=== PATIENT | female | born 1960 | race Caucasian/White ===

== ENCOUNTER 2016-11-25 22:11 | Emergency (ER) | payer MEDICARE, OTHER ==
[2016-11-25 19:14] LABS: BASOPHILS 0.3 %; BASOPHILS ABSOLUTE 0.04 10/3/uL (0.0-0.16); EOSINOPHILS 0.9 %; EOSINOPHILS ABSOLUTE 0.12 10/3/uL (0.0-0.53); HEMATOCRIT 39.8 % (36.0-48.0); HEMOGLOBIN 12.9 g/dL (12.0-16.0); IMMATURE GRANULOCYTES 0.3 %; IMMATURE GRANULOCYTES ABSOLUTE 0.04 10/3/uL (0.0-0.11); LYMPHOCYTES 32.2 %; LYMPHOCYTES ABSOLUTE 4.11 10/3/uL (0.67-4.30); MEAN CORPUS HGB CONC 32.4 g/dL (32.0-36.0); MEAN CORPUSCULAR HEMOGLOB 31.2 pg (26.0-34.0); MEAN CORPUSCULAR VOLUME 96.4 fL (80-100); MEAN PLATELET VOLUME 9.6 fL (9.2-13.0); MONOCYTES 7.3 %; MONOCYTES ABSOLUTE 0.93 10/3/uL (0.21-1.20); NEUTROPHILS ABSOLUTE 7.52 10/3/uL (2.02-8.40); PLATELET COUNT 230 10/3/uL (150-400); RBC DISTRIBUTION WIDTH 16.1 % (12.0-16.0); RED CELL COUNT 4.13 10/6/uL (4.0-5.6); WHITE BLOOD CELLS 12.8 10/3/uL (4.5-10.5)
[2016-11-25 19:18] LABS: MANUAL DIFF NO %
[2016-11-25 19:26] LABS: PARTIAL THROMBO TIME 28.2 SEC (22.5-37.2); PROTIME (NOT ORD) 13.3 SEC (12.0-14.5)
[2016-11-25 19:32] LABS: BUN (BLOOD UREA NITROGEN) 20 MG/DL (6-23); CALCIUM, SERUM 10.4 MG/DL (8.5-10.4); CHEST PAIN PROFILE TAT 0 Hrs 22 Mins; CHLORIDE, SERUM 109 MMOL/L (96-112); CO2 (CARBON DIOXIDE) 25 MMOL/L (24-34); CREATININE 1.01 MG/DL (0.55-1.02); GFR AFRICAN AMERICAN 73 ML/MIN (>=60); GFR NON AFRICAN AMERICAN 63 ML/MIN (>=60); GLUCOSE, SERUM 119 MG/DL (60-99); POTASSIUM, SERUM 3.9 MMOL/L (3.5-5.3); SODIUM, SERUM 141 MMOL/L (135-148); TROPONIN I <0.02 NG/ML (<0.05)
[2016-11-25 20:02] LABS: D-DIMER QUANTITATIVE < 0.27 ug/mLFEU (< 0.50)
[~2016-11-25 22:11] MED LIST: ABILIFY10 PO; ALEVE220 MG PO; AMIT25 PO; ASAB PO; ASCRIPTIN PO; CARDCD240 PO; COREG12 PO; COREG6 PO; EFFEXOR XR150 MG PO; EXALGO16 MG PO; EXCEDRIN MIGRA1 EAC1 PO; FEMARA PO; FISH-EPA1000 MG PO; IMDUR30 PO; K-TABS10 MEQ PO; KEPPRA1000 MG PO; KEPPRA500 PO; KLOR-CON 1010 MEQ PO; KLOR-CON M1010 MEQ PO; L40 PO; LIPITOR20 PO; LOFIB160 PO; LOFIBRA160 MG PO; LOP50 PO; MIRAPEX250 PO; MOBIC7.5 PO; NEUR300 PO; OPANA ER7.5 MG PO; OXYCONTIN15 MG PO; PCET PO; PERCOCET1 TA4 PO; PLAVIX PO; PR25; PRAVACHOL40 MG PO; PROAIR HFA; REQUIP2 PO; REQUIP5 MG PO; RISP1 PO; SEROQUEL200 MG PO; SYN.05 PO; SYN075 PO; TRAZ100 PO; VENTOLIN HFA INH; VISKEN10 PO; XANAX1 MG PO
== END 2016-11-25 22:27 | disposition home or self-care (01) ==
LOC: ER 22:11
PROVIDERS: Emergency Medicine
DX: R07.9 Chest pain, unspecified (principal); R05 Cough; R20.0 Anesthesia of skin; J44.9 Chronic obstructive pulmonary disease, unspecified; I10 Essential (primary) hypertension; F17.200 Nicotine dependence, unspecified, uncomplicated; Z85.3 Personal history of malignant neoplasm of breast; Z88.1 Allergy status to other antibiotic agents; Z88.8 Allergy status to other drugs, medicaments and biological substances; Z79.891 Long term (current) use of opiate analgesic; Z79.899 Other long term (current) drug therapy
CPT/HCPCS: 70450; 71020; 80048; 83735; 84484; 85025; 85379; 85610; 85730; 93005; 96374; 99285; A9270-GY; J2405